=== PATIENT | male | born 1990 | race Caucasian/White ===

== ENCOUNTER 2020-01-16 22:04 | Emergency (ER) | payer OTHER ==
[~2020-01-16] VITALS: Ht 175.3 cm; Wt 87.3 kg
[2020-01-16 22:10] VITALS: TEMP 97.7
[2020-01-16 22:55] VITALS: BP 135/88; PULSE 79
== END 2020-01-16 22:55 | disposition home or self-care (01) ==
LOC: COL.ER 22:04
DX: S61.112A Laceration without foreign body of left thumb with damage to nail, initial encounter (principal); Z23 Encounter for immunization; W26.0XXA Contact with knife, initial encounter; Y92.009 Unspecified place in unspecified non-institutional (private) residence as the place of occurrence of the external cause